=== PATIENT | male | born 1985 | race African-American/Black ===

== ENCOUNTER 2016-06-16 18:31 | Emergency (ER) | payer OTHER ==
--- NOTE | ~2016-06-16 | CR20 ---
[facility] A Service of [facility] & [facility] RADIOLOGY TEXT RESULTS PATIENT: LISA CHACON LOCATION: CFTX : 83 UNIT #: [id number] AGE: [address]: Rufina Alicea SEX: M ORDER DR: [id number] [facility] [address] [place], [place] [address] [id number] E MR#: [id number] Acc #: [id number] NAME: LISA CHACON : 1985 SEX: M STUDY DATE/TIME: 06/16/2016 18:21 UNIT: [facility] ROOM: STUDY DESCRIPTION: CR Ankle Min 3 Views Lt Attending Physician: Rufina Alicea P.A.-C. Ordering Physician: Rufina Alicea P.A.-C. Primary Care Physician: Primary Care Physician No MEDICAL IMAGING REPORT This report is preliminary unless electronic signature is present EXAM Left ankle 3 views INDICATIONS 31-year male with left ankle pain after injuring it 2 days ago. No comparisons. FINDINGS There is mild soft tissue swelling about the ankle greater along the lateral malleolus. Ankle mortise intact. No evidence of fracture. IMPRESSION Mild soft tissue swelling about the ankle. No evidence of fracture. Dictated by... Jose Valdes M.D. THIS IS AN ELECTRONICALLY VERIFIED REPORT Jose Valdes M.D. at 06/17/2016 3:37 PM TREVOR/yuni TD: 06/17/2016 08:14 JOB #: [id number] MEDICAL IMAGING REPORT COPY
--- NOTE | ~2016-06-16 | CR126 ---
[facility] A Service of [facility] & [facility] RADIOLOGY TEXT RESULTS PATIENT: LISA CHACON LOCATION: CFTX : 83 UNIT #: [id number] AGE: [address]: Rufina Alicea SEX: M ORDER DR: [id number] [facility] [address] [place], [place] [address] [id number] E MR#: [id number] Acc #: [id number] NAME: LISA CHACON : 1985 SEX: M STUDY DATE/TIME: 06/16/2016 18:19 UNIT: [facility] ROOM: STUDY DESCRIPTION: CR Foot Complete Min 3 View Lt Attending Physician: Rufina Alicea P.A.-C. Ordering Physician: Rufina Alicea P.A.-C. Primary Care Physician: Primary Care Physician No MEDICAL IMAGING REPORT This report is preliminary unless electronic signature is present EXAM Left foot 3 views INDICATION 31-year-old male with left foot and ankle pain for 2 days after injuring it. COMPARISON No comparisons. FINDINGS There is no fracture, dislocation or soft tissue swelling. IMPRESSION Negative. Dictated by... Jose Valdes M.D. THIS IS AN ELECTRONICALLY VERIFIED REPORT Jose Valdes M.D. at 06/17/2016 3:37 PM Georgie TD: 06/17/2016 08:15 JOB #: [id number] MEDICAL IMAGING REPORT COPY
== END 2016-06-16 19:12 | disposition home or self-care (01) ==
LOC: CFTX 18:31
DX: S93.492A Sprain of other ligament of left ankle, initial encounter (principal); W50.2XXA Accidental twist by another person, initial encounter; Y92.69 Other specified industrial and construction area as the place of occurrence of the external cause; Y99.0 Civilian activity done for income or pay
CPT/HCPCS: 29515; 73610; 73630; 99283